=== PATIENT | female | born 1975 | race African-American/Black ===

== ENCOUNTER 2017-08-10 16:45 | Emergency (ER) | payer OTHER ==
[~2017-08-10] VITALS: Ht 157.5 cm; Wt 68.0 kg
--- NOTE | ~2017-08-10 | EKG ---
[address] [address] ELECTROCARDIOGRAM REPORT Name: MARIANO MCNAMARA Room #: DEP Zita#: [id number] Admission: 08/10/17 Attend Phys: Discharge: 08/10/17 Date of : 75 Report #: [id number] THIS REPORT FOR: //name// [facility] ED Test Date: 2017-08-10 Test Time: 18:28:35 Pat Name: MARIANO MCNAMARA Department: Room: Gender: F [employer] Operator: TSTELLEN : 1975 Requested By: Gt Marino Order Number: [id number] MD: Jose De Jesus Bowers Measurements Intervals [place] Rate: 106 P: 70 NV: 162 QRS: 73 QRSD: 76 T: -42 QT: 370 QTc: 492 Interpretive Statements Sinus tachycardia Probable left atrial enlargement Anteroseptal infarct, old Borderline T abnormalities, inferior leads No previous ECG available for comparison Electronically Signed On 08-10-2017 20:55:06 EVENT STAFF by Jose De Jesus Bowers [email or web address] <ELECTRONICALLY SIGNED> By: Jose De Jesus Bowers MD 08/10/172054 27 27 Jose De Jesus Bowers MD /SARAH
[2017-08-10] MEDS ORDERED: METFORMIN HCL500 MG PO (18:11)
[2017-08-10] MEDS ORDERED: PREDNISONE 20 M20 MG PO (20:06)
[2017-08-10] MEDS ORDERED: PROAIR HFA8.5 GM INH (20:06)
== END 2017-08-10 20:22 | disposition home or self-care (01) ==
LOC: ER 16:45
DX: R06.00 Dyspnea, unspecified (principal); E11.9 Type 2 diabetes mellitus without complications